=== PATIENT | female | born 1960 | race Caucasian/White ===

== ENCOUNTER 2019-12-24 07:54 | Day surgery (SDC) | payer OTHER ==
[~2019-12-24] VITALS: Ht 172.7 cm; Wt 62.0 kg
[~2019-12-24 07:54] MED LIST: CALCAVITD; CRANBERRY450 M1; IRBE150 PO; POTASSIUM99 M1; POTASSIUM99 MG PO
[2019-12-24] MEDS ORDERED: [UNRECOGNIZED DRUG - OTHER] PO (08:22)
--- NOTE | 2019-12-24 10:56 | NUR ---
1028 PATIENT ARRIVED FROM THE [facility]IA [facility]CL[facility]ER TO THE [facility] AND CARE ASSUMED. PATIENT AAOX3, VVS, TR BAND IN PLACE WITH 9 ML OF AIR IN THE BAND. ARMBOARD IN USE ALSO. PATIENT READING BOOK AND SIPPING ON JUICE.
--- NOTE | 2019-12-24 13:21 | NUR ---
1315 PATIENT UP AND DRESSING SELF. NEIGHBOR/ FRIEND AT THE BEDSIDE AND WILL BE TAKING PATIENT HOME. IVF DISOCNNECTED. PATIENT TO THE RESTROOM AND NO DIZZINESS NOTED FROM THE PATIENT. 1320 PIV DISCONTINUED AND PRESSURE DRESSING APPLIED. REVIEWED ALL DISCHARGE INSTRUCTIONS WITH THE PATIENT AND COPIES GIVEN. FOLLOW UP APPOINTMENT ON January. PATIENT VERBALIZED UNDERSTANDING OF ALL INSTRUCTIONS. 1325 TR BAND REMOVED AND SITE CLEANED. CLOTH DOT PLACED AND ARM BOARD REAPPLIED TO DETER PATIENT FROM USE. 1330 PATIENT DISCHARGED WITH ALL BELONGINGS BY WHEELCHAIR.
== END 2019-12-24 13:45 | disposition home or self-care (01) ==
LOC: MHTC 07:54
DX: I25.10 Atherosclerotic heart disease of native coronary artery without angina pectoris (principal); I10 Essential (primary) hypertension; E78.5 Hyperlipidemia, unspecified; Z88.0 Allergy status to penicillin; Z79.899 Other long term (current) drug therapy
CPT/HCPCS: 76937; 85347; 93458; 93571; 99152; 99153; C1725; C1769; C1887; C1894; J1644; J2250; J3010; J7030; Q9967

== ENCOUNTER 2020-06-03 09:12 | Day surgery (SDC) | payer OTHER ==
[~2020-06-03] VITALS: Ht 172.7 cm; Wt 61.8 kg
[~2020-06-03 09:12] MED LIST changes: +[UNRECOGNIZED DRUG - OTHER] PO
--- NOTE | 2020-06-03 09:56 | NUR ---
06/03/20 0956 Laura Guo CALL LIGHT WITHIN REACH
--- NOTE | 2020-06-03 11:10 | NUR ---
06/03/20 1110 JAMIE SARMIENTO PATIENT TO STEP DOWN. VSS. PATIENT DENIES PAIN/NAUSEA. IV DC'D. PT TOLERATING PO INTAKE. ENGAGED IN DISCHARGE TEACHING, ALL QUESTIONS ASKED AND ANSWERED. PATIENT'S RIDE CALLED.
[2020-06-25] MEDS ORDERED: Aspirin EC81 MG PO (09:44)
== END 2020-06-03 11:11 | disposition home or self-care (01) ==
LOC: ORSCSDS 09:12
PROVIDERS: Ophthalmology
PROC: 08RK3JZ Replacement of Left Lens with Synthetic Substitute, Percutaneous Approach (ICD-10-PCS; principal; 2020-06-03 10:30)
DX: H25.12 Age-related nuclear cataract, left eye (principal); I10 Essential (primary) hypertension; Z79.899 Other long term (current) drug therapy
CPT/HCPCS: J2001; J2250; J3010; J3301; J7040; V2632

== ENCOUNTER 2020-07-03 07:59 | Day surgery (SDC) | payer OTHER ==
[~2020-07-03] VITALS: Ht 172.7 cm; Wt 60.7 kg
[~2020-07-03 07:59] MED LIST changes: +Aspirin EC81 MG PO
--- NOTE | 2020-07-03 09:55 | NUR ---
07/03/20 0955 Chloé Luevano 4ML NORMAL SALINE USED TO ELEVATE TRANSVERSE COLON POLYP
== END 2020-07-03 10:25 | disposition home or self-care (01) ==
LOC: ORSCSDS 07:59
PROVIDERS: Internal Medicine Gastroenterology
PROC: 0DBH8ZX Excision of Cecum, Via Natural or Artificial Opening Endoscopic, Diagnostic (ICD-10-PCS; principal; 2020-07-03 09:15)
PROC: 0DBL8ZX Excision of Transverse Colon, Via Natural or Artificial Opening Endoscopic, Diagnostic (ICD-10-PCS; principal; 2020-07-03 09:15)
DX: Z12.11 Encounter for screening for malignant neoplasm of colon (principal); Z86.010 Personal history of colon polyps; D12.3 Benign neoplasm of transverse colon; D12.0 Benign neoplasm of cecum; K64.8 Other hemorrhoids; I10 Essential (primary) hypertension; Z79.82 Long term (current) use of aspirin; Z79.899 Other long term (current) drug therapy
CPT/HCPCS: 88305; J2704; J7120; U0002

== ENCOUNTER → 2021-10-02 | Outpatient (CLI) | payer BC ==
[2021-10-02 17:07] LABS: Adenovirus F 40/41 Not Detected (NOT DETECT); Astrovirus Not Detected (NOT DETECT); Campylobacter Sp Not Detected (NOT DETECT); Cryptosporidium Not Detected (NOT DETECT); Cyclospora Cayetanensis Not Detected (NOT DETECT); E. Coli O157 Not Detected (NOT DETECT); Entamoeba Histolytica Not Detected (NOT DETECT); Enteroaggregative E. coli-EAEC Not Detected (NOT DETECT); Enterotoxigenic E. coli-ETEC Not Detected (NOT DETECT); Giardia Lamblia Not Detected (NOT DETECT); Norovirus GI/GII Not Detected (NOT DETECT); Plesiomonas Shigelloides Not Detected (NOT DETECT); Rotavirus A Not Detected (NOT DETECT); Salmonella Sp Not Detected (NOT DETECT); Sapovirus Not Detected (NOT DETECT); Shiga Toxin-prod E. coli-STEC Not Detected (NOT DETECT); Shigella/Enteroin E. coli-EIEC Not Detected (NOT DETECT); Vibrio Cholerae Not Detected (NOT DETECT); Vibrio Sp Not Detected (NOT DETECT); Yersinia Enterocolitica Not Detected (NOT DETECT)
[2021-10-02 17:08] LABS: Enteropathogenic E. coli-EPEC Detected (NOT DETECT)
[2021-10-03 12:24] LABS: Stool Occult Blood Guaiac 1 Neg (Neg)
== END | disposition home or self-care (01) ==
LOC: LAB 11:26 → LAB SHORT 11:26
PROVIDERS: Nurse Practitioner Family
DX: R19.5 Other fecal abnormalities (principal)
CPT/HCPCS: 0097U; 82272

== ENCOUNTER → 2023-05-26 | Outpatient (CLI) | payer BC | LOC: LAB SHORT 16:10 → LAB 16:10 | DX: R30.0 Dysuria (principal) | CPT/HCPCS: 87077; 87086; 87186 ==

== ENCOUNTER 2023-07-05 07:31 | Day surgery (SDC) | payer BC ==
[~2023-07-05] VITALS: Ht 172.7 cm; Wt 58.1 kg
[2023-07-05 09:34] VITALS: BP 114/79
== END 2023-07-05 09:35 | disposition home or self-care (01) ==
LOC: ORSCSDS 07:31
PROVIDERS: Internal Medicine Gastroenterology
PROC: 0DBL8ZX Excision of Transverse Colon, Via Natural or Artificial Opening Endoscopic, Diagnostic (ICD-10-PCS; principal; 2023-07-05 08:45)
DX: R63.4 Abnormal weight loss (principal); Z86.010 Personal history of colon polyps; D12.3 Benign neoplasm of transverse colon; K57.30 Diverticulosis of large intestine without perforation or abscess without bleeding; K64.8 Other hemorrhoids; I12.9 Hypertensive chronic kidney disease with stage 1 through stage 4 chronic kidney disease, or unspecified chronic kidney disease; N18.2 Chronic kidney disease, stage 2 (mild); E78.5 Hyperlipidemia, unspecified; Z79.899 Other long term (current) drug therapy
CPT/HCPCS: 88305; J2704; J7120

== ENCOUNTER → 2025-01-01 | Outpatient (CLI) | payer OTHER | LOC: LAB 12:00 → LAB SHORT 12:00 | DX: J47.9 Bronchiectasis, uncomplicated (principal) | CPT/HCPCS: 87116 ==

== ENCOUNTER → 2025-02-12 | Outpatient (CLI) | payer OTHER | LOC: LAB SHORT 13:36 → LAB 13:36 | DX: J47.9 Bronchiectasis, uncomplicated (principal) | CPT/HCPCS: 87116 ==